=== PATIENT | male | born 1995 | race Caucasian/White ===

== ENCOUNTER 2023-05-08 02:15 | Emergency (ER) | payer OTHER ==
[~2023-05-08] VITALS: Ht 175.2 cm; Wt 60.3 kg
[~2023-05-08 02:15] MED LIST: AMOXICILLIN500 MG PO; ANAPROX275 MG PO; BACTRIM DS 8001 TA1 PO; CLARITIN10 MG PO; KEFLEX500 MG PO; MOTRIN800 MG PO; NKHM PO; TOBRADEX 0.1%-0.5 ML OPH; ZITHROMAX Z PA250 MG PO
[2023-05-08 02:31] LABS: BASO # 0.1 10*3/uL (0.0-0.1); BASO % 0.7 % (0.0-1.0); EOS # 0.1 10*3/uL (0.0-0.4); EOS % 1.5 % (1.0-4.0); HEMATOCRIT 37.7 % (42.0-52.0); LYMPH # 2.2 10*3/uL (1.3-4.4); LYMPH % 25.9 % (27.0-41.0); MEAN CELL VOLUME 91.1 fl (80.0-94.0); MEAN CORPUSCULAR HGB 31.4 pg (27.0-31.0); MEAN CORPUSCULAR HGB CONC 34.5 g/dl (33.0-37.0); MEAN PLATELET VOLUME 8.8 fl (9.6-12.3); MONO # 0.8 10*3/uL (0.1-1.0); MONO % 9.6 % (3.0-9.0); NEUT # 5.2 10*3/uL (2.3-7.9); NEUT % 62.2 % (47.0-73.0); PLATELET COUNT AUTOMATED 299 10*3/uL (130-400); RED BLOOD COUNT 4.14 10*6/uL (4.50-5.90); RED CELL DISTRI WIDTH 12.8 % (0-14.5); WHITE BLOOD COUNT 8.4 10*3/uL (4.8-10.8)
[2023-05-08 03:07] LABS: BUN 10 mg/dl (9-23); CHLORIDE 112 mmol/L (98-107); POTASSIUM 3.3 mmol/L (3.4-5.1)
[2023-05-08 05:24] VITALS: BP 122/76
== END 2023-05-08 05:01 | disposition short-term general hospital (02) ==
LOC: ED 02:15
PROVIDERS: Internal Medicine
DX: S81.811A Laceration without foreign body, right lower leg, initial encounter (principal); Z88.8 Allergy status to other drugs, medicaments and biological substances; W01.0XXA Fall on same level from slipping, tripping and stumbling without subsequent striking against object, initial encounter; Y93.89 Activity, other specified; Y92.009 Unspecified place in unspecified non-institutional (private) residence as the place of occurrence of the external cause; Y99.8 Other external cause status

== ENCOUNTER 2023-06-06 18:10 | Emergency (ER) | payer OTHER ==
[~2023-06-06] VITALS: Ht 170.1 cm; Wt 61.2 kg
[2023-06-06 18:25] VITALS: BP 126/80
== END 2023-06-06 18:42 | disposition home or self-care (01) ==
LOC: ED 18:10
DX: S81.811D Laceration without foreign body, right lower leg, subsequent encounter (principal); Z88.8 Allergy status to other drugs, medicaments and biological substances; X58.XXXD Exposure to other specified factors, subsequent encounter